=== PATIENT | female | born 1965 | race African-American/Black ===

== ENCOUNTER 2018-05-06 12:52 | Inpatient (IN) | payer MEDICARE, MEDICAID ==
[~2018-05-06] VITALS: Ht 168.9 cm; Wt 97.3 kg
[~2018-05-06 12:52] MED LIST: AMLO5TAB66 PO; AUD NEB; BECL8.7A5 IH; DIPH25CA85 PO; IPRNEB NEB; LISI40TA4 PO; OMEP10SU2 PO; THEOPHYLLINE; TRAM100T27 PO
[2018-05-06 15:09] VITALS: BP 148/89
[2018-05-06] MEDS: LITHIUM CARBONATE 300 MG CAPSULE PO SCH (16:08)
[2018-05-06] MEDS: PARoxetine HCL 20 MG TABLET PO SCH (16:08)
[2018-05-06] MEDS ORDERED: ALBUTEROL SULFATE HFA 90 MCG/PUFF 8 GM INHALER IH PRN (17:00)
[2018-05-06] MEDS ORDERED: DEXTROSE 50%-WATER 25 GM/50 ML SYRINGE IVP PRN (17:15)
[2018-05-06] MEDS ORDERED: IPRATROPIUM BROMIDE 0.5 MG/2.5 ML NEB SOLUTION NEB PRN (17:45)
[2018-05-06 17:59] LABS: BASOPHILS % (AUTO) 0.7 % (0.0-2.0); EOSINOPHILS % (AUTO) 3.6 % (1.0-6.0); HEMATOCRIT 40.7 % (36-46); HEMOGLOBIN 13.5 g/dL (12.0-16.0); LYMPHOCYTES # (AUTO) 2.3 K/uL (1.0-4.8); LYMPHOCYTES % (AUTO) 38.8 % (22.0-44.0); MEAN CORPUSCULAR HGB CONC 33.2 G/dL (31.0-37.0); MEAN CORPUSCULAR VOLUME 87 fL (80-100); MONOCYTES # (AUTO) 0.4 K/uL (0.1-1.0); MONOCYTES % (AUTO) 7.5 % (2.0-9.0); NEUTROPHILS # (AUTO) 2.9 K/uL (1.8-7.7); NEUTROPHILS % (AUTO) 49.4 % (40.0-70.0); PLATELET COUNT (AUTO) 319 K/uL (150-450); RED BLOOD CELL COUNT(AUTO) 4.66 MIL/uL (4.00-5.20); RED CELL DISTRIBUTION WIDTH 13.7 % (11.5-14.5)
[2018-05-06 18:21] VITALS: BP 155/89
[2018-05-06] MEDS: LOSARTAN POTASSIUM 50 MG TABLET PO SCH (18:21)
[2018-05-06] MEDS: AmLODIPine BESYLATE 10 MG TABLET PO SCH (18:21)
[2018-05-06] MEDS ORDERED: MAG HYDROX/AL HYDROX/SIMETH ES 30 ML SUSPENSION UDCUP PO PRN (18:45)
[2018-05-06] MEDS ORDERED: CloNIDine HCL 0.1 MG TABLET PO PRN (18:45)
[2018-05-06] MEDS ORDERED: IBUPROFEN 600 MG TABLET PO PRN (18:45)
[2018-05-06] MEDS ORDERED: ONDANSETRON HCL 4 MG TABLET PO PRN (18:45)
[2018-05-06] MEDS ORDERED: PETROLATUM,WHITE 71 GM JELLY TP PRN (18:45)
[2018-05-06] MEDS ORDERED: ACETAMINOPHEN 325 MG TABLET PO PRN (18:45)
[2018-05-06] MEDS ORDERED: OMEPRAZOLE 20 MG CAPSULE PO PRN (18:45)
[2018-05-06] MEDS ORDERED: BENZOCAINE/MENTHOL LOZENGE MM PRN (18:45)
[2018-05-06] MEDS ORDERED: LOPERAMIDE HCL 2 MG CAPSULE PO PRN (18:45)
[2018-05-06] MEDS ORDERED: MAGNESIUM HYDROXIDE SUSPENSION 30 ML UDCUP PO PRN (18:45)
[2018-05-06] MEDS ORDERED: BACITRACIN 28.4 GM OINTMENT TP PRN (18:45)
[2018-05-06] MEDS ORDERED: DOCUSATE SODIUM 100 MG CAPSULE PO PRN (18:45)
[2018-05-06] MEDS: DIAZEPAM 10 MG TABLET PO SCH (20:52)
[2018-05-06 21:20] LABS: ALANINE AMINOTRANSFERASE 47 U/L (12-78); ALBUMIN 4.7 g/dL (3.4-5.0); ALKALINE PHOSPHATASE 115 U/L (46-116); ANION GAP 9 mmol/L (8-16); ASPARTATE AMINOTRANSFERASE 22 U/L (15-37); BILIRUBIN,TOTAL 0.6 mg/dL (0.1-1.0); CALCIUM, TOTAL 9.9 mg/dL (8.8-10.5); CARBON DIOXIDE 29 mmol/L (22-29); CHLORIDE 101 mmol/L (98-107); CREATININE 0.76 mg/dL (0.60-1.30); GLOMERULAR FILTR. RATE CALC > 60 mL/min (>60); GLUCOSE,RANDOM 91 mg/dL (70-110); HCG,QUANTITATIVE < 1 mIU/mL (0-6); POTASSIUM 3.7 mmol/L (3.5-5.1); SODIUM SERUM 139 mmol/L (136-145); TOTAL PROTEIN, SERUM 8.6 g/dL (6.4-8.2); UREA NITROGEN, BLOOD 9 mg/dL (7-18)
[2018-05-06] MEDS: ALBUTEROL SULFATE 2.5 MG/0.5 ML NEB SOLUTION NEB PRN (21:40)
[2018-05-06] MEDS: IPRATROPIUM BROMIDE 0.5 MG/2.5 ML NEB SOLUTION NEB PRN (21:40)
[2018-05-06 22:23] LABS: GLUCOMETER DEV NAME(LOC) 3EX 1; GLUCOSE,POINT OF CARE 101 MG/DL (70-110)
[2018-05-07 06:24] LABS: GLUCOMETER DEV NAME(LOC) 3EI C; GLUCOSE,POINT OF CARE 150 MG/DL (70-110)
[2018-05-07] MEDS: ALBUTEROL SULFATE HFA 90 MCG/PUFF 8 GM INHALER IH PRN ×2 (06:58→16:28)
[2018-05-07] MEDS: INSULIN LISPRO 100 UNITS/ML SQ PRN (07:30)
[2018-05-07 08:25] VITALS: BP 137/72
[2018-05-07] MEDS ORDERED: [UNRECOGNIZED DRUG - OTHER] PO SCH (09:00)
[2018-05-07] MEDS ORDERED: IBUPROFEN 600 MG TABLET PO SCH (09:00)
[2018-05-07] MEDS: PARoxetine HCL 20 MG TABLET PO SCH (09:07)
[2018-05-07] MEDS: LITHIUM CARBONATE 300 MG CAPSULE PO SCH ×2 (09:07→16:28)
[2018-05-07] MEDS: BECLOMETHASONE DIPR HFA 80 MCG/PUFF 10.6 GM INHALER IH SCH ×2 (09:08→16:27)
[2018-05-07] MEDS: LOSARTAN POTASSIUM 50 MG TABLET PO SCH (09:08)
[2018-05-07] MEDS: ASPIRIN 81 MG CHEWABLE TABLET PO SCH (09:10)
[2018-05-07] MEDS: LISINOPRIL 20 MG TABLET PO SCH (09:11)
[2018-05-07] MEDS: TraMADol HCL 50 MG TABLET PO SCH ×2 (09:11→16:28)
[2018-05-07] MEDS: AmLODIPine BESYLATE 10 MG TABLET PO SCH (09:12)
[2018-05-07 10:42] LABS: APPEARANCE,URINE CLEAR (CLEAR); BILIRUBIN,URINE NEGATIVE (NEGATIVE); GLUCOSE, URINE (UA) NEGATIVE (NEGATIVE); KETONES,URINE NEGATIVE (NEGATIVE); LEUKOCYTE ESTERASE ,URINE NEGATIVE (NEGATIVE); NITRATE,URINE NEGATIVE (NEGATIVE); OCCULT BLOOD,URINE NEGATIVE (NEGATIVE); PROTEIN,URINE NEGATIVE (NEGATIVE); UROBILINOGEN,URINE 0.2 mg/dL (<=1.0)
[2018-05-07 10:49] LABS: AMPHET/METH SCREEN,URINE NEGATIVE (NEGATIVE); BARBITURATE SCREEN, URINE NEGATIVE (NEGATIVE); BENZODIAZEPINES SCREEN,URINE POSITIVE (NEGATIVE); CANNABINOID SCREEN,URINE POSITIVE (NEGATIVE); COCAINE SCREEN,URINE NEGATIVE (NEGATIVE); METHADONE SCREEN, URINE NEGATIVE (NEGATIVE); OPIATE SCREEN,URINE NEGATIVE (NEGATIVE); PHENCYCLIDINE SCREEN,URINE NEGATIVE (NEGATIVE)
[2018-05-07] MEDS ORDERED: PIMECROLIMUS 1% 30 GM CREAM TP PRN (11:30)
[2018-05-07 11:38] LABS: GLUCOMETER DEV NAME(LOC) 3EX 1; GLUCOSE,POINT OF CARE 126 MG/DL (70-110)
[2018-05-07 17:33] LABS: GLUCOMETER DEV NAME(LOC) 3EX 1; GLUCOSE,POINT OF CARE 108 MG/DL (70-110)
[2018-05-07 18:41] VITALS: BP 142/82
[2018-05-07] MEDS: DIAZEPAM 10 MG TABLET PO SCH (20:38)
[2018-05-07 20:48] LABS: GLUCOMETER DEV NAME(LOC) 3EX 1; GLUCOSE,POINT OF CARE 119 MG/DL (70-110)
[2018-05-07] MEDS: IPRATROPIUM BROMIDE 0.5 MG/2.5 ML NEB SOLUTION NEB PRN (21:50)
[2018-05-07] MEDS: ALBUTEROL SULFATE 2.5 MG/0.5 ML NEB SOLUTION NEB PRN (21:50)
[2018-05-08 05:39] LABS: GLUCOMETER DEV NAME(LOC) 3EI C; GLUCOSE,POINT OF CARE 105 MG/DL (70-110)
[2018-05-08 06:10] VITALS: BP 150/91
[2018-05-08] MEDS: ALBUTEROL SULFATE HFA 90 MCG/PUFF 8 GM INHALER IH PRN ×2 (07:41→12:55)
[2018-05-08] MEDS: PARoxetine HCL 20 MG TABLET PO SCH (08:51)
[2018-05-08] MEDS: LOSARTAN POTASSIUM 50 MG TABLET PO SCH (08:51)
[2018-05-08] MEDS: LITHIUM CARBONATE 300 MG CAPSULE PO SCH ×2 (08:51→17:11)
[2018-05-08] MEDS: LISINOPRIL 20 MG TABLET PO SCH (08:51)
[2018-05-08] MEDS: TraMADol HCL 50 MG TABLET PO SCH ×2 (08:52→17:11)
[2018-05-08] MEDS: BECLOMETHASONE DIPR HFA 80 MCG/PUFF 10.6 GM INHALER IH SCH ×2 (08:52→17:10)
[2018-05-08] MEDS: ASPIRIN 81 MG CHEWABLE TABLET PO SCH (08:52)
[2018-05-08] MEDS: AmLODIPine BESYLATE 10 MG TABLET PO SCH (08:52)
[2018-05-08 09:05] VITALS: BP 136/74
[2018-05-08] MEDS ORDERED: HALOPERIDOL 5 MG TABLET PO PRN (12:45)
[2018-05-08 12:48] LABS: GLUCOMETER DEV NAME(LOC) 3EX 1; GLUCOSE,POINT OF CARE 110 MG/DL (70-110)
[2018-05-08] MEDS: HALOPERIDOL 5 MG TABLET PO PRN (12:54)
[2018-05-08 16:42] LABS: GLUCOMETER DEV NAME(LOC) 3EX 1; GLUCOSE,POINT OF CARE 122 MG/DL (70-110)
[2018-05-08 17:00] VITALS: BP 125/75
[2018-05-08] MEDS: HYDROCORTISONE 0.5% 30 GM OINTMENT TP SCH (17:04)
[2018-05-08] MEDS: DIAZEPAM 10 MG TABLET PO SCH (20:55)
[2018-05-08 21:03] LABS: GLUCOMETER DEV NAME(LOC) 3EX 1; GLUCOSE,POINT OF CARE 101 MG/DL (70-110)
[2018-05-09 05:58] LABS: GLUCOMETER DEV NAME(LOC) 3EI C; GLUCOSE,POINT OF CARE 98 MG/DL (70-110)
[2018-05-09 08:00] VITALS: BP 136/99
[2018-05-09] MEDS: AmLODIPine BESYLATE 10 MG TABLET PO SCH (08:22)
[2018-05-09] MEDS: TraMADol HCL 50 MG TABLET PO SCH ×2 (08:23→16:41)
[2018-05-09] MEDS: PredniSONE 5 MG TABLET PO SCH (08:23)
[2018-05-09] MEDS: PARoxetine HCL 20 MG TABLET PO SCH (08:23)
[2018-05-09] MEDS: LITHIUM CARBONATE 300 MG CAPSULE PO SCH ×2 (08:23→16:41)
[2018-05-09] MEDS: LOSARTAN POTASSIUM 50 MG TABLET PO SCH (08:23)
[2018-05-09] MEDS: LISINOPRIL 20 MG TABLET PO SCH (08:24)
[2018-05-09] MEDS: ASPIRIN 81 MG CHEWABLE TABLET PO SCH (08:24)
[2018-05-09] MEDS: ALBUTEROL SULFATE HFA 90 MCG/PUFF 8 GM INHALER IH PRN ×2 (08:25→22:36)
[2018-05-09] MEDS: HYDROCORTISONE 0.5% 30 GM OINTMENT TP SCH (08:26)
[2018-05-09] MEDS: BECLOMETHASONE DIPR HFA 80 MCG/PUFF 10.6 GM INHALER IH SCH ×2 (10:48→16:41)
[2018-05-09 11:58] LABS: GLUCOMETER DEV NAME(LOC) 3EX 1; GLUCOSE,POINT OF CARE 143 MG/DL (70-110)
[2018-05-09] MEDS: HALOPERIDOL 5 MG TABLET PO PRN (13:03)
[2018-05-09 16:34] VITALS: BP 115/75
[2018-05-09 17:38] LABS: GLUCOMETER DEV NAME(LOC) 3EX 1; GLUCOSE,POINT OF CARE 123 MG/DL (70-110)
[2018-05-09] MEDS: DIAZEPAM 10 MG TABLET PO SCH (20:20)
[2018-05-09 21:27] LABS: GLUCOMETER DEV NAME(LOC) 3EX 1; GLUCOSE,POINT OF CARE 122 MG/DL (70-110)
[2018-05-10 06:28] LABS: GLUCOMETER DEV NAME(LOC) 3EI C; GLUCOSE,POINT OF CARE 90 MG/DL (70-110)
[2018-05-10] MEDS: ALBUTEROL SULFATE HFA 90 MCG/PUFF 8 GM INHALER IH PRN (09:07)
[2018-05-10] MEDS: LOSARTAN POTASSIUM 50 MG TABLET PO SCH (09:08)
[2018-05-10] MEDS: PredniSONE 5 MG TABLET PO SCH (09:08)
[2018-05-10] MEDS: LITHIUM CARBONATE 300 MG CAPSULE PO SCH ×2 (09:08→16:43)
[2018-05-10] MEDS: TraMADol HCL 50 MG TABLET PO SCH ×2 (09:08→16:43)
[2018-05-10] MEDS: BECLOMETHASONE DIPR HFA 80 MCG/PUFF 10.6 GM INHALER IH SCH ×2 (09:08→16:43)
[2018-05-10] MEDS: HYDROCORTISONE 0.5% 30 GM OINTMENT TP SCH (09:09)
[2018-05-10] MEDS: PARoxetine HCL 20 MG TABLET PO SCH (09:09)
[2018-05-10] MEDS: AmLODIPine BESYLATE 10 MG TABLET PO SCH (09:09)
[2018-05-10] MEDS: LISINOPRIL 20 MG TABLET PO SCH (09:09)
[2018-05-10] MEDS: ASPIRIN 81 MG CHEWABLE TABLET PO SCH (09:09)
[2018-05-10 10:59] VITALS: BP 142/87
[2018-05-10 13:18] LABS: GLUCOMETER DEV NAME(LOC) 3EX 1; GLUCOSE,POINT OF CARE 113 MG/DL (70-110)
[2018-05-10 16:23] VITALS: BP 139/83
[2018-05-10 17:13] LABS: GLUCOMETER DEV NAME(LOC) 3EX 1; GLUCOSE,POINT OF CARE 99 MG/DL (70-110)
[2018-05-10] MEDS: DIAZEPAM 10 MG TABLET PO SCH (20:12)
[2018-05-10 20:38] LABS: GLUCOMETER DEV NAME(LOC) 3EX 1; GLUCOSE,POINT OF CARE 125 MG/DL (70-110)
[2018-05-11 05:33] LABS: GLUCOMETER DEV NAME(LOC) 3EI C; GLUCOSE,POINT OF CARE 94 MG/DL (70-110)
[2018-05-11] MEDS: ALBUTEROL SULFATE HFA 90 MCG/PUFF 8 GM INHALER IH PRN (06:53)
[2018-05-11 09:05] VITALS: BP 156/99
[2018-05-11] MEDS: PredniSONE 5 MG TABLET PO SCH (09:08)
[2018-05-11] MEDS: LITHIUM CARBONATE 300 MG CAPSULE PO SCH (09:08)
[2018-05-11] MEDS: ASPIRIN 81 MG CHEWABLE TABLET PO SCH (09:08)
[2018-05-11] MEDS: TraMADol HCL 50 MG TABLET PO SCH (09:09)
[2018-05-11] MEDS: PARoxetine HCL 20 MG TABLET PO SCH (09:09)
[2018-05-11] MEDS: LOSARTAN POTASSIUM 50 MG TABLET PO SCH (09:12)
[2018-05-11] MEDS: AmLODIPine BESYLATE 10 MG TABLET PO SCH (09:12)
[2018-05-11] MEDS: LISINOPRIL 20 MG TABLET PO SCH (09:13)
[2018-05-11] MEDS: HYDROCORTISONE 0.5% 30 GM OINTMENT TP SCH (09:16)
[2018-05-11] MEDS: BECLOMETHASONE DIPR HFA 80 MCG/PUFF 10.6 GM INHALER IH SCH (09:16)
[2018-05-11 11:33] LABS: GLUCOMETER DEV NAME(LOC) 3EX 1; GLUCOSE,POINT OF CARE 85 MG/DL (70-110)
[2018-05-11] MEDS: INSULIN LISPRO 100 UNITS/ML SQ PRN (11:44)
[2018-05-11] MEDS ORDERED: DIAZ10 PO (12:44)
[2018-05-11] MEDS ORDERED: LOSA50TA25 PO (12:44)
[2018-05-11] MEDS ORDERED: PRED5 PO (12:44)
[2018-05-11] MEDS ORDERED: LITH300C3 PO (12:44)
[2018-05-11] MEDS ORDERED: ASPI81 PO (12:44)
[2018-05-11] MEDS ORDERED: PARO20TA24 PO (12:44)
[2018-05-11] MEDS ORDERED: HC530C TP (12:44)
== END 2018-05-11 14:45 | disposition home or self-care (01) | DRG 885 ==
LOC: 3EX 14:01
PROVIDERS: ADMIT Psychiatry & Neurology Psychiatry; ATTEND Psychiatry & Neurology Psychiatry
DX: F25.8 Other schizoaffective disorders (principal); R45.851 Suicidal ideations; F22 Delusional disorders; E11.9 Type 2 diabetes mellitus without complications; I10 Essential (primary) hypertension; J44.9 Chronic obstructive pulmonary disease, unspecified; F31.9 Bipolar disorder, unspecified; F12.90 Cannabis use, unspecified, uncomplicated; Z56.0 Unemployment, unspecified; F41.9 Anxiety disorder, unspecified; Z91.14 Patient's other noncompliance with medication regimen; Z91.013 Allergy to seafood; Z91.018 Allergy to other foods
CPT/HCPCS: 80307; 94640; 94660; G0378; J3535

== ENCOUNTER 2018-11-26 11:43 | Emergency (ER) | payer MEDICARE, OTHER ==
[~2018-11-26] VITALS: Ht 167.6 cm; Wt 102.3 kg
[~2018-11-26 11:43] MED LIST changes: +ASPI81 PO; -AUD NEB; +DIAZ10 PO; -DIPH25CA85 PO; +HC530C TP; -IPRNEB NEB; +LITH300C3 PO; +LOSA50TA64 PO; -OMEP10SU2 PO; +PARO20TA24 PO; +PRED5 PO; -THEOPHYLLINE
[2018-11-26 12:09] LABS: GLUCOSE,POINT OF CARE 184 MG/DL (70-110)
[2018-11-26] MEDS ORDERED: METF-960 PO (12:09)
[2018-11-26] MEDS ORDERED: ALBU8HFA IH (12:09)
[2018-11-26 14:05] VITALS: BP 132/84
== END 2018-11-26 14:18 | disposition home or self-care (01) ==
LOC: EMS 11:43
DX: L30.9 Dermatitis, unspecified (principal); I10 Essential (primary) hypertension; F41.9 Anxiety disorder, unspecified; J45.909 Unspecified asthma, uncomplicated; Z91.018 Allergy to other foods; Z79.84 Long term (current) use of oral hypoglycemic drugs; Z79.82 Long term (current) use of aspirin; Z79.899 Other long term (current) drug therapy

== ENCOUNTER 2019-05-02 10:21 | Emergency (ER) | payer MEDICARE, OTHER ==
[~2019-05-02] VITALS: Ht 165.1 cm; Wt 100.0 kg
[~2019-05-02 10:21] MED LIST changes: +ALBU8HFA IH; -LISI40TA4 PO; +METF-960 PO; -PRED5 PO; -TRAM100T27 PO
[2019-05-02 10:41] LABS: GLUCOSE,POINT OF CARE 202 MG/DL (70-110)
[2019-05-02] MEDS ORDERED: BECL10.62 IH (11:37)
[2019-05-02] MEDS ORDERED: AMLO10TA7 PO (11:37)
[2019-05-02] MEDS ORDERED: CefTRIAXone 1 GM/DEXTROSE 50 ML IV ONE (11:45)
[2019-05-02] MEDS ORDERED: DEXAMETHASONE SOD PHOS 4 MG/ML 5 ML VIAL IVP ONE (11:45)
[2019-05-02] MEDS ORDERED: KETOROLAC TROMETHAMINE 30 MG/ML VIAL IVP ONE (11:45)
[2019-05-02] MEDS ORDERED: LOSARTAN POTASSIUM 50 MG TABLET PO ONE (13:00)
[2019-05-02] MEDS ORDERED: AmLODIPine BESYLATE 5 MG TABLET PO ONE (13:00)
[2019-05-02 13:16] VITALS: BP 155/99
== END 2019-05-02 13:17 | disposition home or self-care (01) ==
LOC: EMS 10:24
DX: L72.3 Sebaceous cyst (principal); L30.9 Dermatitis, unspecified; F41.9 Anxiety disorder, unspecified; I10 Essential (primary) hypertension; J45.909 Unspecified asthma, uncomplicated; Z79.82 Long term (current) use of aspirin; Z79.84 Long term (current) use of oral hypoglycemic drugs; Z91.013 Allergy to seafood; Z91.018 Allergy to other foods
CPT/HCPCS: 82962; 96365; 96375; 99283; J0696; J1100; J1885

== ENCOUNTER 2020-06-04 19:00 | Emergency (ER) | payer OTHER ==
[~2020-06-04] VITALS: Ht 170.2 cm; Wt 100.0 kg
[~2020-06-04 19:00] MED LIST changes: +AMLO-258 PO; -AMLO5TAB66 PO; +ASPI-728 PO; -ASPI81 PO; +BECL10.62 IH; -BECL8.7A5 IH; +LOSA50TA37 PO; -LOSA50TA64 PO; +PARO-38 PO; -PARO20TA24 PO
[2020-06-04 19:55] VITALS: BP 141/90
[2020-06-04] MEDS ORDERED: DEXAMETHASONE SOD PHOS 4 MG/ML 5 ML VIAL PO ONE (20:15)
[2020-06-04] MEDS ORDERED: DiphenhydrAMINE HCL 25 MG CAPSULE PO ONE (20:15)
== END 2020-06-04 20:27 | disposition home or self-care (01) ==
LOC: EMS 19:02
DX: H66.92 Otitis media, unspecified, left ear (principal); L25.9 Unspecified contact dermatitis, unspecified cause; F41.9 Anxiety disorder, unspecified; I10 Essential (primary) hypertension; J45.909 Unspecified asthma, uncomplicated; F12.90 Cannabis use, unspecified, uncomplicated; Z88.8 Allergy status to other drugs, medicaments and biological substances; Z91.013 Allergy to seafood; Z79.82 Long term (current) use of aspirin; Z79.84 Long term (current) use of oral hypoglycemic drugs
CPT/HCPCS: 99283; J1100